=== PATIENT | male | born 1985 | race Caucasian/White ===

== ENCOUNTER 2020-10-23 13:26 | Emergency (ER) | payer OTHER, SELFPAY ==
[2020-10-23 13:36] VITALS: BP 153/91; PULSE 89; RESP 15; TEMP 36.8; O2SAT 99; BMI 38.5
[2020-10-23 15:07] VITALS: PULSE 72; O2SAT 100
[2020-10-23 15:08] VITALS: BP 141/90; PULSE 73; O2SAT 100
--- NOTE | 2020-10-23 15:13 | PC.NURSE ---
pt c/o nausea from the pain
[2020-10-23 15:30] VITALS: BP 140/81; PULSE 78; O2SAT 98
[2020-10-23] MEDS: ACETAMINOPHEN 325 MG TABLET 650 MG PO (16:00)
[2020-10-23] MEDS: KETOROLAC 60 MG/2 ML VIAL 30 MG IM (16:01)
[2020-10-23] MEDS: ONDANSETRON 4 MG ODT SL (16:01)
[2020-10-23] MEDS: CYCLOBENZAPRINE 10 MG TABLET PO (16:01)
[2020-10-23] MEDS: LIDOCAINE PATCH 1 EACH ADH..PATCH TOP (16:02)
[2020-10-23 17:29] VITALS: PULSE 87; O2SAT 99
[2020-10-23 17:30] VITALS: BP 162/103; PULSE 87; O2SAT 98
--- NOTE | 2020-10-23 21:47 | ED.BACK ---
HPI - Back Pain/Injury <Aiden PhilipTRUNG James - Last Filed: 10/23/20 22:15> General Chief Complaint: Back Pain/Injury Stated Complaint: right flank pain injury today L&I Time Seen by Provider: 10/23/20 15:31 Source: patient Mode of arrival: Ambulatory Limitations: no limitations History of Present Illness HPI Narrative: This is a 35-year-old male, smoker, who has no contributory medical history presents to ED with significant other with chief complain of left midthoracic pain below scapula which radiates around to right-sided rib cage after he was pulling something very heavy out of a boat during work since 0930 am. Patient denies fall or trauma on to affected site. Patient denies fever, chills, vomiting but nauseated from severe pain. Patient denies tingling/numbness/weakness to right upper extremity. Patient denies popping sensation of with the injury. Patient is not on anticoagulants. Patient describes as sharp pain and worse with movements and abduction of right arm. Patient reports pain as 7 to 8/10. 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 Related Data Home Medications Medication Instructions Recorded Confirmed diphenhydramine HCl [Benadryl #0 03/19/17 Allergy] Previous Rx's Medication Instructions Recorded omeprazole magnesium [Prilosec OTC] 20 mg PO QDAY #30 03/19/17 cyclobenzaprine 10 mg PO BID PRN #10 tab 10/23/20 hydrocodone-acetaminophen [[place]] 1 tab PO BID PRN #5 tab 10/23/20 lidocaine 1 patch TOPICAL DAILY #30 ea 10/23/20 Allergies Allergy/AdvReac Type Severity Reaction Status Date / Time No Known Drug Allergies Allergy Verified 10/23/20 13:36 Review of Systems <Aiden PhilipElidaTRUNG Loaiza - Last Filed: 10/23/20 22:15> Review of Systems Narrative: General: Denies fever, chills, fatigue, malaise, sweats. HEENT: Denies sinus pain, ear pain, sore throat, difficulty swallowing, dizziness. Respiratory: Denies dyspnea, cough, wheezing, hemoptysis, sputum. Cardiovascular: Denies chest pain, palpitations, orthopnea, edema. Gastrointestinal: Denies nausea, vomiting, abdominal pain, diarrhea, constipation, melena. : Denies dysuria, frequency, incontinence, hematuria, urinary retention. Musculoskeletal: See HPI Skin: Denies rash, skin lesions, or other. Neurologic: Denies weakness, headache, numbness, change in speech, confusion, seizures, incoordination. Psychiatric: No concerning psychosocial issues. 12-point review of systems is negative except for those stated above. Patient History <TRUNG Donnelly - Last Filed: 10/23/20 22:15> Surgical History No pertinent past surgical history Social History Smoking Status: Current every day smoker alcohol intake: current substance use type: does not use alcohol intake frequency: 0-2 drinks per day Substance Use Type: marijuana Exam <TRUNG Donnelly - Last Filed: 10/23/20 22:15> Narrative Exam Narrative: GEN: Alert, oriented x 3, well nourished, and in moderate distress from discomfort and nausea. Head: Normal cephalic, atraumatic. No scalp or temporal tenderness, palpable mass or rash. EYES: Pupils are equal, round, and reactive to light and accommodation. Extraocular muscles are intact bilaterally. There is no subconjunctival hemorrhage, exudate and sclera non-icteric. ENT: Hearing grossly intact. Nose without bleeding, purulent discharge or deviation. Mucous membrane moist, no mucosal lesion. Throat without erythema, tonsillar hypertrophy or exudate. Uvula in midline, airway patent. Neck: Trachea in midline. No JVD, non-tender without lymphadenopathy. No masses or thyroid megaly. Supple, non-tender and no meningeal signs. CARDIAC: Normal regular rate and rhythm without murmurs, gallops, or rubs. No chest wall tenderness. No peripheral edema, cyanosis or pallor. Capillary refill is less than 2 seconds. RESPIRATORY: Lungs are clear to auscultate bilaterally. No cough, wheezes, rales, or rhonchi. No stridor, respiratory distress, increase work of breathing, or accessary muscle used. ABD: Abdomen soft, nontender and non-distended. No guarding or rebound tenderness to palpate. Bowel sounds are normal in all 4 quadrants. There is no palpable masses or organomegaly. EXT: Bilateral upper extremities with intact sensation. Decreased range of motion with abduction on right upper extremity due to discomfort in right thoracic back. No loss of strength, effusion or edema. SKIN: Warm, dry, normal color for patient. No erythema, lesions or rash over visible areas. BACK: Tender to palpate on right thoracic back without deformity or crepitance. No flank tenderness. No rashes, No warmth or edema. No spinous tenderness. NEUROLOGICAL: Alert and oriented to place, time and person. Sensation and motor function intact bilaterally. No facial droops, dysphasia. PSYCHIATRIC: Good judgement and reason, without hallucinations, abnormal affect or abnormal behaviors during the examination. Patient is not suicidal. Initial Vital Signs Initial Vital Signs: Vital Signs Temperature 98.3 F 10/23/20 13:36 Pulse Rate 89 10/23/20 13:36 Respiratory Rate 15 10/23/20 13:36 Blood Pressure 153/91 H 10/23/20 13:36 Pulse Oximetry 99 10/23/20 13:36 <Siddhartha Clark MD - Last Filed: 12/08/20 20:16> Initial Vital Signs Initial Vital Signs: Vital Signs Temperature 98.3 F 10/23/20 13:36 Pulse Rate 89 10/23/20 13:36 Respiratory Rate 15 10/23/20 13:36 Blood Pressure 153/91 H 10/23/20 13:36 Pulse Oximetry 99 10/23/20 13:36 Scores <TRUNG Donnelly - Last Filed: 10/23/20 22:15> GCS Jennifer coma scale eye opening: Spontaneous [place] coma scale verbal response: Orientated [place] coma scale motor response: Obey commands Jennifer coma scale total score: 15 qSOFA Altered Mental Status (GCS <15): No Respiratory rate greater than/equal to 22: No Systolic blood pressure less than or equal to 100: No qSOFA Total: 0 0-1 Not High Risk 1-3 High risk Course <TRUNG Donnelly - Last Filed: 10/23/20 22:15> Orders Ordered: Discontinued Medications Acetaminophen (Acetaminophen 325 Mg Tablet) 650 mg PO NOW ONE Stop: 10/23/20 15:47 Last Admin: 10/23/20 16:00 Dose: 650 mg Documented by: MMINOR Cyclobenzaprine HCl (Cyclobenzaprine 10 Mg Tablet) 10 mg PO NOW ONE Stop: 10/23/20 15:47 Last Admin: 10/23/20 16:01 Dose: 10 mg Documented by: MARTHA Ketorolac Tromethamine (Ketorolac 60 Mg/2 Ml Vial) 30 mg IM NOW ONE Stop: 10/23/20 15:47 Last Admin: 10/23/20 16:01 Dose: 30 mg Documented by: MARTHA Lidocaine (Lidocaine Patch 1 Each Adh..Patch) 1 each TOP NOW ONE Stop: 10/23/20 15:47 Last Admin: 10/23/20 16:02 Dose: 1 each Documented by: MARTHA Ondansetron HCl (Ondansetron 4 Mg Odt) 4 mg SL NOW ONE Stop: 10/23/20 15:48 Last Admin: 10/23/20 16:01 Dose: 4 mg Documented by: MARTHA Vital Signs Vital signs: Vital Signs - 8 hr 10/23/20 15:07 10/23/20 15:08 10/23/20 15:30 Pulse Rate 72 73 78 Blood Pressure 141/90 H 140/81 Pulse Oximetry 100 100 98 10/23/20 17:29 10/23/20 17:30 Pulse Rate 87 87 Blood Pressure 162/103 H Pulse Oximetry 99 98 <Siddhartha Clark MD - Last Filed: 12/08/20 20:16> Orders Ordered: Discontinued Medications Acetaminophen (Acetaminophen 325 Mg Tablet) 650 mg PO NOW ONE Stop: 10/23/20 15:47 Last Admin: 10/23/20 16:00 Dose: 650 mg Documented by: MARTHA Cyclobenzaprine HCl (Cyclobenzaprine 10 Mg Tablet) 10 mg PO NOW ONE Stop: 10/23/20 15:47 Last Admin: 10/23/20 16:01 Dose: 10 mg Documented by: MARTHA Ketorolac Tromethamine (Ketorolac 60 Mg/2 Ml Vial) 30 mg IM NOW ONE Stop: 10/23/20 15:47 Last Admin: 10/23/20 16:01 Dose: 30 mg Documented by: MARTHA Lidocaine (Lidocaine Patch 1 Each Adh..Patch) 1 each TOP NOW ONE Stop: 10/23/20 15:47 Last Admin: 10/23/20 16:02 Dose: 1 each Documented by: MARTHA Ondansetron HCl (Ondansetron 4 Mg Odt) 4 mg SL NOW ONE Stop: 10/23/20 15:48 Last Admin: 10/23/20 16:01 Dose: 4 mg Documented by: MARTHA Vital Signs Vital signs: Vital Signs - 8 hr 10/23/20 15:07 10/23/20 15:08 10/23/20 15:30 Pulse Rate 72 73 78 Blood Pressure 141/90 H 140/81 Pulse Oximetry 100 100 98 10/23/20 17:29 10/23/20 17:30 Pulse Rate 87 87 Blood Pressure 162/103 H Pulse Oximetry 99 98 [facility] - Back Pain/Injury <Aiden RosenTRUNG - Last Filed: 10/23/20 22:15> Differential Diagnosis Differential diagnosis: Likely thoracic back pain and other (thoracic back strain, discitis, shingles) Medical Records Attestation: I reviewed the patient's medical records. MDM Narrative Medical decision making narrative: 35 year male who presents to ED with right-sided thoracic back pain after he pulled something heavy out of a boat this morning. Patient has intact sensation, strength in bilateral upper extremities. Patient exhibited decreased active range of motion with abduction on right arm with increased pain on thoracic back and lateral ribs. Pain started immediately after pulling heavy object without other trauma and x-ray test was deferred at this time. No rashes on his back. No spinous tenderness or signs of infection. Patient was treated with IM Toradol, Lidocaine patch, Tylenol, Flexeril and Zofran for this symptoms with much improvement. Patient discharged to home with Flexeril, few tabs of [place], lidocaine patch and advised to use [id number] Tylenol and or Motrin after discussing Motrin and narcotic, muscle relaxant precautions. Return precautions were discussed with patient and patient verbalized understanding and in agreement with the treatment plan. Work off note for a day provided. Discharge Plan Departure Patient Disposition: Home Clinical Impression: Muscle strain of right upper back Instructions: DI for Back Strain or Sprain Activity Restrictions/Additional Instructions: You have been diagnosed with [right upper back strain.]. What to do: *Take your medications as directed. Please continue to use [id number] Tylenol and or Motrin as needed for discomfort. Tylenol 650-1000 mg up to 3 to 4 times a day as needed. Ibuprofen 400-600 mg to 3 times a day as needed for inflammation and pain with food to decrease GI irritation. For severe pain you can supplement 1 Tylenol with [place]. [place] is narcotic pain medications and he can cause drowsiness so please take precautions not driving, drinking alcohol, or operating heavy equipments. Flexeril is muscle relaxant indicating take this specially at night before bed. Also he can cause drowsiness so please follow same precautions. Lidocaine patch on affected site which stays on for 12 hours and off for 12 hours. *Follow up with your primary care provider in 2-3 days, call for an appointment. Let them know you were seen in the ED and that we asked you to be seen in follow up. *Return to ED if you have any new, worsening, or concerning symptoms, such as [chest pain, worsening pain, difficulty breathing, fever, rash, tingling/weakness/numbness on the right arm, or any acute concerns]. Prescriptions: New cyclobenzaprine 10 mg tablet 10 mg PO BID PRN (Reason: muscle spasm) Qty: 10 RF: 0 hydrocodone-acetaminophen [[place]] 5-325 mg tablet 1 tab PO BID PRN (Reason: pain) Qty: 5 RF: 0 lidocaine 5 % adhesive patch,medicated 1 patch topical DAILY Qty: 30 RF: 0 No Action diphenhydramine HCl [Benadryl Allergy] 25 MG tablet Qty: 0 RF: 0 omeprazole magnesium [Prilosec OTC] 20 MG tablet,delayed release (DR/EC) 20 mg PO QDAY Qty: 30 RF: 0 Stand Alone Forms: Work Release Note
== END 2020-10-23 17:33 | disposition home or self-care (01) ==
PROVIDERS: Emergency Provider Nurse Practitioner Family
DX: S29.012A Strain of muscle and tendon of back wall of thorax, initial encounter (principal); R07.81 Pleurodynia; R11.0 Nausea; Y99.0 Civilian activity done for income or pay
CPT/HCPCS: 96372; 99281; 99283; J1885

== ENCOUNTER 2025-01-18 13:08 | Emergency (ER) | payer OTHER, SELFPAY ==
[2025-01-18 13:11] VITALS: BP 156/96; PULSE 78; RESP 18; TEMP 36.8; O2SAT 100; BMI 36.3
[2025-01-18 13:34] LABS: Add Manual Diff / Slide Review NO; Basophils Absolute Auto 100 /uL (0-100); Basophils Percent Auto 0.8 % (0-2); Eosinophils Absolute Auto 100 /uL (0-450); Eosinophils Percent Auto 1.3 % (2-4); Hematocrit 47.2 % (41-53); Lymphocytes Absolute Auto 2500 /uL (1100-4500); Lymphocytes Percent Auto 35.6 % (25-40); Mean Corpuscular HGB Conc 33.9 % (30-36); Mean Corpuscular Hemoglobin 31.5 PG (26-34); Monocytes Absolute Auto 700 /uL (0-900); Monocytes Percent Auto 10.5 % (3-14); Neutrophils Absolute Auto 3700 /uL (1500-7000); Neutrophils Percent Auto 51.8 % (50-75); Platelet Count 209 X10^3/uL (150-400); Red Blood Cell Count 5.08 X10^6/uL (4.5-5.9); Red Cell Distribution Width 13.4 % (11.6-14.8); White Blood Cell Count 7.1 X10^3/uL (4.5-11.0)
--- NOTE | 2025-01-18 13:37 | ED.ABDPAIN ---
HPI - Abdominal Pain <Lianna Shell PA-C - Last Filed: 01/18/25 16:24> General Chief Complaint: Abdominal Pain Stated Complaint: side and lower back px, fever Time Seen by Provider: 01/18/25 13:34 History of Present Illness HPI narrative: Mr. Rios is a pleasant 39 year old male with a documented a past medical history of fatty liver disease, daily alcohol use who presents to the emergency department with his girlfriend for multiple concerns. States that over the last few years he has had constant right upper quadrant abdominal pain and right flank pain. States that he has also had unintentional weight loss for the last few months and frequent diarrhea and fatigue. About 1 week ago he felt like he was sick with the flu as he was having intermittent fevers and worsening right upper quadrant abdominal pain and right flank pain. This pain in his right upper quadrant occasionally radiates to the chest. States that he was having cough sore throat congestion and ear pain but all of these things have improved. He has not taken any medications for the pain but he does take daily vitamins. He drinks approximately 6 hard seltzer the day in the evening, he occasionally smokes marijuana but does not smoke cigarettes. No abdominal surgeries. Related Data Allergies Allergy/AdvReac Type Severity Reaction Status Date / Time No Known Drug Allergies Allergy Verified 12/13/23 17:57 Review of Systems <Lianna Shell PA-C - Last Filed: 01/18/25 16:24> Review of Systems ROS Unobtainable: All systems reviewed & are unremarkable except as noted in HPI and below Patient History <Lianna Shell PA-C - Last Filed: 01/18/25 16:24> Surgical History No pertinent past surgical history Social History Smoking Status: Current every day smoker alcohol intake: current substance use type: does not use Smoking Status: Current every day smoker alcohol intake frequency: 0-2 drinks per day Alcohol type: beer Exam <Lianna Shell PA-C - Last Filed: 01/18/25 16:24> Narrative Exam Narrative: GENERAL: 39 year old patient appears stated age. Obese patient, in no acute distress. HEAD: Atraumatic. Normocephalic. EYES: No scleral icterus. No injection or drainage. ENT: Nose without bleeding, purulent drainage. Throat with mild erythema, NO tonsillar hypertrophy or exudate. Airway patent. NECK: Trachea midline. Cervical ROM intact. CARDIOVASCULAR: Regular rate and rhythm. RESPIRATORY: ?Nonlabored respirations. ?Speaking in clear, full sentences. ?Clear to auscultation. Breath sounds equal bilaterally. No wheezes, rales, or rhonchi. ? GASTROINTESTINAL: Abdomen soft, non-tender, nondistended. Subjective R flank and RUQ pain but negative Fagan's sign. EXTREMITIES: No edema or joint tenderness. BACK: No CVA tenderness. NEURO: AOx3. ?Clear speech. ?Moves all 4 extremities appropriately. SKIN: No rash or erythema of visible areas Initial Vital Signs Initial Vital Signs: Vital Signs Temperature 98.2 F 01/18/25 13:11 Pulse Rate 78 01/18/25 13:11 Respiratory Rate 18 01/18/25 13:11 Blood Pressure 156/96 H 01/18/25 13:11 Pulse Oximetry 100 01/18/25 13:11 Oxygen Delivery Method Room Air 01/18/25 13:11 <Dcik Mora MD - Last Filed: 01/21/25 07:30> Initial Vital Signs Initial Vital Signs: Vital Signs Temperature 98.2 F 01/18/25 13:11 Pulse Rate 78 01/18/25 13:11 Respiratory Rate 18 01/18/25 13:11 Blood Pressure 156/96 H 01/18/25 13:11 Pulse Oximetry 100 01/18/25 13:11 Oxygen Delivery Method Room Air 01/18/25 13:11 Course <Lianna Shell PA-C - Last Filed: 01/18/25 16:24> Orders Ordered: Discontinued Medications Sodium Chloride (Normal Saline 0.9%) 1,000 mls @ 1,000 mls/hr IV BOLUS ONE Stop: 01/18/25 14:57 Last Infusion: 01/18/25 15:22 Dose: Infused Documented By: Admin: 01/18/25 14:25 Dose: 1,000 mls/hr Documented By: GUILLAUME Ketorolac Tromethamine (Ketorolac 30 Mg/Ml Vial) 15 mg IV NOW ONE Stop: 01/18/25 13:59 Last Admin: 01/18/25 14:24 Dose: 15 mg Documented By: ES Ondansetron HCl (Ondansetron 4 Mg/2 Ml Inj) 4 mg IV NOW PRN PRN Reason: Nausea And Vomiting Last Admin: 01/18/25 14:25 Dose: 4 mg Documented By: ES Ondansetron HCl (Ondansetron 4 Mg Odt) 4 mg PO NOW PRN PRN Reason: Nausea And Vomiting Vital Signs Vital signs: Vital Signs - 8 hr 01/18/25 13:11 Temperature 98.2 F Pulse Rate 78 Respiratory Rate 18 Blood Pressure 156/96 H Pulse Oximetry 100 Oxygen Delivery Method Room Air <Dick Mora MD - Last Filed: 01/21/25 07:30> Orders Ordered: Discontinued Medications Sodium Chloride (Normal Saline 0.9%) 1,000 mls @ 1,000 mls/hr IV BOLUS ONE Stop: 01/18/25 14:57 Last Infusion: 01/18/25 15:22 Dose: Infused Documented By: Admin: 01/18/25 14:25 Dose: 1,000 mls/hr Documented By: GUILLAUME Ketorolac Tromethamine (Ketorolac 30 Mg/Ml Vial) 15 mg IV NOW ONE Stop: 01/18/25 13:59 Last Admin: 01/18/25 14:24 Dose: 15 mg Documented By: ES Ondansetron HCl (Ondansetron 4 Mg/2 Ml Inj) 4 mg IV NOW PRN PRN Reason: Nausea And Vomiting Last Admin: 01/18/25 14:25 Dose: 4 mg Documented By: ES Ondansetron HCl (Ondansetron 4 Mg Odt) 4 mg PO NOW PRN PRN Reason: Nausea And Vomiting Vital Signs Vital signs: Vital Signs - 8 hr 01/18/25 13:11 Temperature 98.2 F Pulse Rate 78 Respiratory Rate 18 Blood Pressure 156/96 H Pulse Oximetry 100 Oxygen Delivery Method Room Air MDM - Abdominal Pain <Lianna Shell PA-C - Last Filed: 01/18/25 16:24> Medical Records Attestation: I reviewed the patient's medical records. Lab Data 01/18/25 13:25 01/18/25 13:25 Labs: Lab Results 01/18/25 01/18/25 Range/Units 13:25 14:30 WBC 7.1 (4.5-11.0) X10^3/uL RBC 5.08 (4.5-5.9) X10^6/uL Hgb 16.0 (13.5-17.5) g/dL Hct 47.2 (41-53) % MCV 93.0 (80-100) fL MCH 31.5 (26-34) PG MCHC 33.9 (30-36) % RDW 13.4 (11.6-14.8) % Plt Count 209 (150-400) X10^3/uL Neut % (Auto) 51.8 (50-75) % Lymph % (Auto) 35.6 (25-40) % [place] % (Auto) 10.5 (3-14) % Eos % (Auto) 1.3 L (2-4) % Baso % (Auto) 0.8 (0-2) % Neut # (Auto) 3700 (3476-7200) /uL Lymph # (Auto) 2500 (8646-5189) /uL [place] # (Auto) 700 (0-900) /uL Eos # (Auto) 100 (0-450) /uL Baso # (Auto) 100 (0-100) /uL Sodium 137 (137-145) mmol/L Potassium 3.6 (3.4-5.1) mmol/L Chloride 102 (98-107) mmol/L Carbon Dioxide 25 (22-32) mmol/L BUN 8 L (9-20) mg/dL Creatinine 0.99 (0.66-1.25) mg/dL Estimated GFR > 60 (>60) mL/min BUN/Creatinine Ratio 8.1 (6-22) Glucose 111 H (70-100) mg/dL Calcium 8.9 (8.4-10.2) mg/dL Total Bilirubin 1.3 (0.2-1.3) mg/dL AST 45 (17-59) IU/L ALT 42 (<50) IU/L Alkaline Phosphatase 51 (38-126) U/L Total Creatine Kinase 101 (55-170) U/L Troponin I < 0.012 (0.01-0.034) ng/mL Total Protein 7.7 (6.3-8.2) g/dL Albumin 4.9 (3.5-5.0) g/dL Globulin 2.8 (1.7-4.1) g/dL Albumin/Globulin Ratio 1.8 (1.0-2.8) Lipase 183 (23-300) U/L SARS-CoV-2 (PCR) Negative (Negative) Influenza A (RT-PCR) Flu a negative (NEGATIVE) Influenza B (RT-PCR) Flu b negative (NEGATIVE) RSV (PCR) Negative (Negative) Point of care testing: Urine Dip Bedside Urine Glucose Negative Bedside Urine Bilirubin - Negative Bedside Urine Ketone - Negative Urine Specific [place] 1.015 Bedside Urine Occult Blood - Negative Bedside Urine pH 6.0 Bedside Urine Protein - Negative Bedside Urine Urobilinogen - Negative Bedside Urine Nitrite - Negative Bedside Urine Leukocytes - Negative Esterase Imaging Data Chest x-ray: Radiologist's Impression: PROCEDURE: XR CHEST 2V INDICATIONS: RUQ abd pain rad to chest TECHNIQUE: 2 views of the chest were acquired. COMPARISON: None. FINDINGS: Surgical changes and devices: None. Lungs and pleura: Lungs are clear. No pleural effusions or pneumothorax. Mediastinum: Mediastinal contours are normal. Heart size is normal. Bones and chest wall: No suspicious bony abnormalities. Soft tissues appear unremarkable. IMPRESSION: No acute cardiopulmonary abnormality is seen. CT scan - abdomen/pelvis: Radiologist's Impression: PROCEDURE: CT ABDOMEN PELVIS W CON INDICATIONS: RUQ abd pain; R flank pain; chronic diarrhea TECHNIQUE: After the administration of intravenous contrast, axial sections acquired from the lung bases to the pubic symphysis. Coronal and sagittal reformats were performed. For radiation dose reduction, the following was used: automated exposure control, adjustment of mA and/or kV according to patient size. COMPARISON: None. FINDINGS: Image quality: Diagnostic. Lower Chest: Probable mucous plugging and bronchiectasis, extreme left lung base. ABDOMEN: Liver: No solid mass. Gallbladder: No radiopaque gallstones or wall thickening. Biliary ducts: No biliary dilation. Pancreas: No ductal dilation. Spleen: Size is within normal limits. Adrenal Glands: No adrenal nodules. Kidneys and Ureters: No hydronephrosis. No solid mass. No complex renal cystic lesion which requires follow up. Stomach and Bowel: Normal colonic caliber, without significant wall thickening. There are a couple loops of proximal jejunum that have nonspecific prominent wall thickening without dilatation. Findings are consistent with nonspecific jejunal enteropathy or enteritis. Reference images 71 and 72 of axial series 2. No dilated loops of small bowel. Peritoneum: No abnormal intraperitoneal fluid. No free air. Ventral Wall: No significant ventral hernia. Abdominal Nodes: No retroperitoneal or mesenteric adenopathy by size criteria. Vessels: Aorta and inferior vena cava are normal in size. PELVIS: Pelvic Organs: Unremarkable. Bladder: No bladder wall thickening, accounting for underdistention. Pelvic Nodes: No enlarged lymph nodes. Miscellaneous: Small fat containing right inguinal hernias are seen. Bones: No aggressive osseous abnormality. IMPRESSION: 1. No findings which explain right upper quadrant pain. 2. Nonspecific proximal jejunal enteropathy or enteritis. [facility] Narrative Medical decision making narrative: 39 year old male with a documented a past medical history of fatty liver disease, daily alcohol use who presents to the emergency department with his girlfriend for multiple concerns. States that over the last few years he has had constant right upper quadrant abdominal pain and right flank pain. States that he has also had unintentional weight loss for the last few months and frequent diarrhea and fatigue. About 1 week ago he felt like he was sick with the flu as he was having intermittent fevers and worsening right upper quadrant abdominal pain and right flank pain. Differential diagnosis includes but is not limited to fatty liver, cholelithiasis, biliary colic, nephrolithiasis, pyelonephritis, gastritis, inflammatory bowel disease, IBS, viral syndrome, pneumonia, angina, etc. On exam the patient is in no acute distress, nontoxic appearing, vital signs appropriate except for mildly elevated blood pressure. Use subjective pain in the right upper quadrant of the abdomen in the right flank but no reproducible tenderness. Symptoms have gotten worse over the last week after having some type of flu-like illness. Abdominal labs obtained in triage, we will add on chest x-ray EKG troponin CK given patient states abdominal pain occasionally radiates to chest, we will also add on fluids, Toradol, GI panel, CT abdomen and pelvis with IV contrast for further evaluation. Point of care urinalysis negative. Labs reveal normal WBC 7.1, hemoglobin 16.0, hematocrit 47.2. Platelets 209. Normal sodium 137, potassium 3.6, BUN 8 creatinine 0.99. Glucose 111. Normal lipase and LFTs. CT abdomen pelvis reveals nonspecific proximal jejunal enteropathy or enteritis. Liver reveals no solid mass, gallbladder reveals no radiopaque gallstones or wall thickening. Patient feels much better after ED treatment and abdominal exam is benign. We discussed possible enteritis and the importance of follow up with the primary care doctor for further evaluation as he may benefit by seeing GI for endoscopy/colonoscopy. Recommended decrease alcohol, daily vitamins, increase hydration, ibuprofen/Tylenol if needed for pain. Strict ED return precautions were discussed. Both him and his partner verbalized understanding of all information agreeable with the plan. He is stable for discharge home. <Dick Mora MD - Last Filed: 01/21/25 07:30> Lab Data Labs: Lab Results 01/18/25 01/18/25 Range/Units 13:25 14:30 WBC 7.1 (4.5-11.0) X10^3/uL RBC 5.08 (4.5-5.9) X10^6/uL Hgb 16.0 (13.5-17.5) g/dL Hct 47.2 (41-53) % MCV 93.0 (80-100) fL MCH 31.5 (26-34) PG MCHC 33.9 (30-36) % RDW 13.4 (11.6-14.8) % Plt Count 209 (150-400) X10^3/uL Neut % (Auto) 51.8 (50-75) % Lymph % (Auto) 35.6 (25-40) % [place] % (Auto) 10.5 (3-14) % Eos % (Auto) 1.3 L (2-4) % Baso % (Auto) 0.8 (0-2) % Neut # (Auto) 3700 (9631-3972) /uL Lymph # (Auto) 2500 (5827-8340) /uL [place] # (Auto) 700 (0-900) /uL Eos # (Auto) 100 (0-450) /uL Baso # (Auto) 100 (0-100) /uL Sodium 137 (137-145) mmol/L Potassium 3.6 (3.4-5.1) mmol/L Chloride 102 (98-107) mmol/L Carbon Dioxide 25 (22-32) mmol/L BUN 8 L (9-20) mg/dL Creatinine 0.99 (0.66-1.25) mg/dL Estimated GFR > 60 (>60) mL/min BUN/Creatinine Ratio 8.1 (6-22) Glucose 111 H (70-100) mg/dL Calcium 8.9 (8.4-10.2) mg/dL Total Bilirubin 1.3 (0.2-1.3) mg/dL AST 45 (17-59) IU/L ALT 42 (<50) IU/L Alkaline Phosphatase 51 (38-126) U/L Total Creatine Kinase 101 (55-170) U/L Troponin I < 0.012 (0.01-0.034) ng/mL Total Protein 7.7 (6.3-8.2) g/dL Albumin 4.9 (3.5-5.0) g/dL Globulin 2.8 (1.7-4.1) g/dL Albumin/Globulin Ratio 1.8 (1.0-2.8) Lipase 183 (23-300) U/L SARS-CoV-2 (PCR) Negative (Negative) Influenza A (RT-PCR) Flu a negative (NEGATIVE) Influenza B (RT-PCR) Flu b negative (NEGATIVE) RSV (PCR) Negative (Negative) Point of care testing: Urine Dip Bedside Urine Glucose Negative Bedside Urine Bilirubin - Negative Bedside Urine Ketone - Negative Urine Specific [place] 1.015 Bedside Urine Occult Blood - Negative Bedside Urine pH 6.0 Bedside Urine Protein - Negative Bedside Urine Urobilinogen - Negative Bedside Urine Nitrite - Negative Bedside Urine Leukocytes - Negative Esterase Discharge Plan Departure Patient Disposition: Home Clinical Impression: Enteritis, Right flank pain Instructions: DI for Enteritis Activity Restrictions/Additional Instructions: Dear Rios, Thank you for coming to the emergency department today. Your lab work today was overall reassuring. Your chest x-ray was negative for pneumonia. Your CT scan revealed enteritis which is inflammation of the small bowel. This can sometimes be caused by a virus but can also be related to an underlying chronic disorder so it is very important that follow up with the primary care doctor for further evaluation. Please rest, hydrate. Please take Ibuprofen (Motrin/Advil) or Acetaminophen (Tylenol) for pain. These are available over the counter. You may take Ibuprofen 600 mg every 8 hours with food for pain. You may also take Acetaminophen 650 mg every 4-6 hours for pain. Do not exceed 3000 mg of Tylenol a day as this can cause liver damage. Do not drink alcohol with either of these medications. Please follow up with your primary care doctor within the next 2-3 days for ER follow-up. (If you do not have a PCP you can call [phone]. ?to schedule an appointment with an [facility] Primary Care Provider) IF YOU DEVELOP ANY NEW OR WORSENING SYMPTOMS, RETURN TO THE ER! Please read the attached instructions, they highlight more specific treatments and interventions for you at home. Thank you for letting me participate in your care, Lianna Shell PA-C Referrals: Miscellaneous,Doctor, [Primary Care Provider] - Stand Alone Forms: Patient Portal/API/Survey ED Sign-out <Dick Mora MD - Last Filed: 01/21/25 07:30> Cosign ED Attending Cosnedaature Attestation: I was immediately available in the department for consultation. ?This documentation has been reviewed and I agree with assessment and plan. Supervised by Dick Mora MD
[2025-01-18 13:53] LABS: Alanine Aminotransferase 42 IU/L (<50); Albumin 4.9 g/dL (3.5-5.0); Albumin Globulin Ratio 1.8 (1.0-2.8); Alkaline Phosphatase 51 U/L (38-126); Aspartate Aminotransferase 45 IU/L (17-59); BUN Creatinine Ratio 8.1 (6-22); Bilirubin Total 1.3 mg/dL (0.2-1.3); Blood Urea Nitrogen 8 mg/dL (9-20); Calcium 8.9 mg/dL (8.4-10.2); Carbon Dioxide 25 mmol/L (22-32); Chloride 102 mmol/L (98-107); Estimated Glomerular Filt Rate > 60 mL/min (>60); Globulin 2.8 g/dL (1.7-4.1); Glucose 111 mg/dL (70-100); HEMOLYSIS < 15 (0-50); Lipase 183 U/L (23-300); Potassium 3.6 mmol/L (3.4-5.1); Sodium 137 mmol/L (137-145); Total Protein 7.7 g/dL (6.3-8.2)
--- NOTE | 2025-01-18 13:58 | DI.RAD.S_ITS ---
PROCEDURE: XR CHEST 2V INDICATIONS: RUQ abd pain rad to chest TECHNIQUE: 2 views of the chest were acquired. COMPARISON: None. FINDINGS: Surgical changes and devices: None. Lungs and pleura: Lungs are clear. No pleural effusions or pneumothorax. Mediastinum: Mediastinal contours are normal. Heart size is normal. Bones and chest wall: No suspicious bony abnormalities. Soft tissues appear unremarkable. IMPRESSION: No acute cardiopulmonary abnormality is seen. Dictated by: Yariel Shaw M.D. on 01/18/2025 at 14:55 Approved by: Yariel Shaw M.D. on 01/18/2025 at 15:00
--- NOTE | 2025-01-18 13:58 | DI.CT.S_ITS ---
PROCEDURE: CT ABDOMEN PELVIS W CON INDICATIONS: RUQ abd pain; R flank pain; chronic diarrhea TECHNIQUE: After the administration of intravenous contrast, axial sections acquired from the lung bases to the pubic symphysis. Coronal and sagittal reformats were performed. For radiation dose reduction, the following was used: automated exposure control, adjustment of mA and/or kV according to patient size. COMPARISON: None. FINDINGS: Image quality: Diagnostic. Lower Chest: Probable mucous plugging and bronchiectasis, extreme left lung base. ABDOMEN: Liver: No solid mass. Gallbladder: No radiopaque gallstones or wall thickening. Biliary ducts: No biliary dilation. Pancreas: No ductal dilation. Spleen: Size is within normal limits. Adrenal Glands: No adrenal nodules. Kidneys and Ureters: No hydronephrosis. No solid mass. No complex renal cystic lesion which requires follow up. Stomach and Bowel: Normal colonic caliber, without significant wall thickening. There are a couple loops of proximal jejunum that have nonspecific prominent wall thickening without dilatation. Findings are consistent with nonspecific jejunal enteropathy or enteritis. Reference images 71 and 72 of axial series 2. No dilated loops of small bowel. Peritoneum: No abnormal intraperitoneal fluid. No free air. Ventral Wall: No significant ventral hernia. Abdominal Nodes: No retroperitoneal or mesenteric adenopathy by size criteria. Vessels: Aorta and inferior vena cava are normal in size. PELVIS: Pelvic Organs: Unremarkable. Bladder: No bladder wall thickening, accounting for underdistention. Pelvic Nodes: No enlarged lymph nodes. Miscellaneous: Small fat containing right inguinal hernias are seen. Bones: No aggressive osseous abnormality. IMPRESSION: 1. No findings which explain right upper quadrant pain. 2. Nonspecific proximal jejunal enteropathy or enteritis. Dictated by: Yariel Shaw M.D. on 01/18/2025 at 14:44 Approved by: Yariel Shaw M.D. on 01/18/2025 at 14:55
--- NOTE | 2025-01-18 13:58 | EKG_ITS ---
[address] [address] Test Date: 2025-01-18 Pat Name: Hero Rios Department: Room: Gender: Male Overlocker: TASHA : 1985 Requested By: Order Number: [id number] Reading MD: Naeem Stokes Measurements Intervals [place] Rate: 69 P: 55 MS: 132 QRS: 63 QRSD: 90 T: 51 QT: 388 QTc: 415 Interpretive Statements Normal sinus rhythm Electronically Signed On 01-20-2025 18:56:20 PST by Naeem Stokes
[2025-01-18 14:17] LABS: Creatine Kinase 101 U/L (55-170)
[2025-01-18] MEDS: KETOROLAC 30 MG/ML VIAL 15 MG IV (14:24)
[2025-01-18] MEDS: ONDANSETRON 4 MG/2 ML INJ IV (14:25)
[2025-01-18] MEDS: SODIUM CHLORIDE 0.9% 1,000 ML 1000 ML IV (14:25)
[2025-01-18 14:30] LABS: Troponin I < 0.012 ng/mL (0.01-0.034)
[2025-01-18 15:22] LABS: Influenza A - CEPHEID Flu A NEGATIVE (NEGATIVE); Influenza B - CEPHEID Flu B NEGATIVE (NEGATIVE); Respiratory Syncytial Virus Negative (Negative)
[2025-01-18 15:23] LABS: COVID-19 CEPHEID 4-PLEX PCR Negative (Negative)
== END 2025-01-18 16:28 | disposition home or self-care (01) ==
PROVIDERS: Emergency Medicine; Emergency Provider Physician Assistant
DX: K52.9 Noninfective gastroenteritis and colitis, unspecified (principal); R10.11 Right upper quadrant pain
CPT/HCPCS: 0241U; 36415; 71046; 74177; 80053; 81003; 82550; 83690; 84484; 85025; 93005; 96361; 96374; 96375; 99284; J1885; J2405; Q9967